=== PATIENT | female | born 1990 | race Caucasian/White ===

== ENCOUNTER 2017-01-14 12:09 | Inpatient (IN) | payer OTHER ==
[~2017-01-14] VITALS: Ht 157.5 cm; Wt 77.1 kg
[2017-01-14] VITALS (17 sets, daily range): BP systolic 98–141; BP diastolic 58–85
[~2017-01-14 12:09] MED LIST: ENDOCET 5-3251 EACH PO; IBUPROFEN800 MG PO
[2017-01-14] MEDS ORDERED: SYNTHROID100 MCG PO (16:10)
[2017-01-14] MEDS ORDERED: PRENATAL TABLE1 EAC3 PO (16:10)
[2017-01-14] MEDS ORDERED: COLACE100 MG PO (16:11)
[2017-01-14 16:19] LABS: EOSINOPHIL (%) 0.9 % (0-5); EOSINOPHIL COUNT 0.1 K/uL (0-0.3); HEMATOCRIT 38.5 % (36.0-46.0); IMMATURE GRANULOCYTE (%) 0.3 % (0.0-0.7); INSTRUMENT ABS NEUTROPHIL CT 7.5 K/uL; LYMPHOCYTE COUNT 1.9 K/uL (1.0-2.8); MCH 29.6 PG (29.0-34.0); MCHC 33.5 G/DL (30.0-36.0); MCV 88.3 FL (83-99); MEAN PLAT.VOLUME 9.5 uM^3 (9.5-12.4); MONOCYTE (%) 7.5 % (3-12); MONOCYTE COUNT 0.8 K/uL (0-0.8); NEUTROPHIL (%) 72.8 % (45-76); NEUTROPHIL COUNT 7.5 K/uL (1.8-6.4); PLATELET COUNT 244 K/uL (156-360); RBC DIS.WIDTH-CV 12.9 % (11.8-14.6); RBC DIS.WIDTH-SD 41.7 % (39-53); RED BLOOD COUNT 4.36 M/uL (3.80-5.20); WHITE BLOOD COUNT 10.3 K/uL (4.1-10.2)
[2017-01-14] MEDS ORDERED: LO-DOSE ASPIRIN81 M2 PO (18:52)
[2017-01-15] VITALS (10 sets, daily range): BP systolic 100–125; BP diastolic 50–74
[2017-01-16 07:11] LABS: BASOPHIL COUNT 0.1 K/uL (0-0.1); EOSINOPHIL (%) 2.7 % (0-5); EOSINOPHIL COUNT 0.3 K/uL (0-0.3); HEMATOCRIT 37.6 % (36.0-46.0); IMMATURE GRANULOCYTE (%) 0.3 % (0.0-0.7); INSTRUMENT ABS NEUTROPHIL CT 6.2 K/uL; LYMPHOCYTE COUNT 2.6 K/uL (1.0-2.8); MCH 30.6 PG (29.0-34.0); MCHC 33.2 G/DL (30.0-36.0); MCV 92.2 FL (83-99); MEAN PLAT.VOLUME 9.8 uM^3 (9.5-12.4); MONOCYTE (%) 8.8 % (3-12); MONOCYTE COUNT 0.9 K/uL (0-0.8); NEUTROPHIL (%) 61.6 % (45-76); NEUTROPHIL COUNT 6.2 K/uL (1.8-6.4); PLATELET COUNT 198 K/uL (156-360); RBC DIS.WIDTH-CV 13.2 % (11.8-14.6); RBC DIS.WIDTH-SD 43.8 % (39-53); RED BLOOD COUNT 4.08 M/uL (3.80-5.20); WHITE BLOOD COUNT 10.1 K/uL (4.1-10.2)
[2017-01-16 07:38] VITALS: BP 122/65
[2017-01-16 15:12] VITALS: BP 124/65
[2017-01-16 23:11] VITALS: BP 125/65
[2017-01-17 07:12] VITALS: BP 122/81
[2017-01-17 14:56] VITALS: BP 111/73
== END 2017-01-17 16:35 | disposition home or self-care (01) | DRG 775 ==
LOC: LDRP-OP 12:09 → 2WEST 12:10 → LDRP-OP 02-19 09:48
PROVIDERS: Midwife
DX: O99.824 Streptococcus B carrier state complicating childbirth (principal); O99.344 Other mental disorders complicating childbirth; O99.284 Endocrine, nutritional and metabolic diseases complicating childbirth; E03.9 Hypothyroidism, unspecified; F32.9 Major depressive disorder, single episode, unspecified; F41.9 Anxiety disorder, unspecified; O40.3XX0 Polyhydramnios, third trimester, not applicable or unspecified; Z3A.39 39 weeks gestation of pregnancy; Z37.0 Single live birth
CPT/HCPCS: 85025; C1755; G0378; J2540; J3010; J7120

== ENCOUNTER 2017-04-30 11:27 | Emergency (ER) | payer OTHER ==
[~2017-04-30] VITALS: Ht 157.5 cm; Wt 69.0 kg
[~2017-04-30 11:27] MED LIST changes: +COLACE100 MG PO; +LO-DOSE ASPIRIN81 M2 PO; +PRENATAL TABLE1 EAC3 PO; +SYNTHROID100 MCG PO
[2017-04-30 11:44] LABS: HEMATOCRIT 39.3 % (36.0-46.0); MCH 29.8 PG (29.0-34.0); MCHC 33.1 G/DL (30.0-36.0); MCV 90.1 FL (83-99); PLATELET COUNT 285 K/uL (156-360); RBC DIS.WIDTH-CV 12.5 % (11.8-14.6); RBC DIS.WIDTH-SD 41.4 % (39-53); RED BLOOD COUNT 4.36 M/uL (3.80-5.20); WHITE BLOOD COUNT 11.6 K/uL (4.1-10.2)
[2017-04-30 11:52] LABS: CHLORIDE 108 mEq/L (99-109); SODIUM 141 mEq/L (136-147)
[2017-04-30 11:54] LABS: GLUCOSE 99 mg/dL (70-99)
[2017-04-30 11:55] LABS: ANION GAP 11 MEQ/L (2-14)
[2017-04-30 11:58] LABS: GFR ESTIMATE (CALCULATED) > 59 mL/min/
[2017-04-30 11:59] LABS: UREA NITROGEN (BUN) 21 mg/dL (9-23)
[2017-04-30 12:06] LABS: QUANTITATIVE HCG < 4.0 MIU/ML
[2017-04-30] MEDS ORDERED: FLOMAX0.4 MG PO (14:32)
[2017-04-30] MEDS ORDERED: MOTRIN600 MG PO (14:32)
[2017-04-30] MEDS ORDERED: ZOFRAN ODT4 MG PO (14:32)
[2017-04-30 14:50] VITALS: BP 110/66
== END 2017-04-30 14:50 | disposition home or self-care (01) ==
LOC: EME 11:27
DX: N13.2 Hydronephrosis with renal and ureteral calculous obstruction (principal); Z87.440 Personal history of urinary (tract) infections; Z97.5 Presence of (intrauterine) contraceptive device
CPT/HCPCS: 74176; 80048; 81003; 84702; 85027; 99281; 99283

== ENCOUNTER → 2017-05-14 | Outpatient (CLI) | payer OTHER ==
[~2017-05-14] MED LIST changes: +FLOMAX0.4 MG PO; +MOTRIN600 MG PO; +ZOFRAN ODT4 MG PO
== END | disposition home or self-care (01) ==
LOC: RAD 09:00
DX: N13.2 Hydronephrosis with renal and ureteral calculous obstruction (principal); N28.89 Other specified disorders of kidney and ureter
CPT/HCPCS: 74000; 76770